=== PATIENT | female | born 1940 | race Caucasian/White ===

== ENCOUNTER 2017-02-27 12:15 | Day surgery (SDC) | payer MEDICARE, BC ==
[~2017-02-27] VITALS: Ht 160 cm; Wt 60.1 kg
== END 2017-02-27 16:03 | disposition home or self-care (01) ==
LOC: RAD.S 12:15 → EDSTATUS 14:00 → RAD.S 14:00
PROC: 0DB63ZX Excision of Stomach, Percutaneous Approach, Diagnostic (ICD-10-PCS; principal; 2017-02-27)
DX: D36.15 Benign neoplasm of peripheral nerves and autonomic nervous system of abdomen (principal); I10 Essential (primary) hypertension; I25.10 Atherosclerotic heart disease of native coronary artery without angina pectoris; E78.5 Hyperlipidemia, unspecified; E78.00 Pure hypercholesterolemia, unspecified; Z88.0 Allergy status to penicillin; Z90.710 Acquired absence of both cervix and uterus; Z95.5 Presence of coronary angioplasty implant and graft; Z98.890 Other specified postprocedural states